=== PATIENT | male | born 1990 | race Caucasian/White ===

== ENCOUNTER 2023-03-17 12:48 | Emergency (ER) | payer SELFPAY | END 2023-03-17 17:24 | disposition home or self-care (01) | LOC: MW.ED 12:48 | DX: S61.212A Laceration without foreign body of right middle finger without damage to nail, initial encounter (principal); S61.210A Laceration without foreign body of right index finger without damage to nail, initial encounter; W23.1XXA Caught, crushed, jammed, or pinched between stationary objects, initial encounter | CPT/HCPCS: 12001; 73140-26-F8; 73140-F8; 99283 ==

== ENCOUNTER 2023-03-27 14:54 | Emergency (ER) | payer SELFPAY | END 2023-03-27 15:48 | disposition left against medical advice (07) | LOC: MW.ED 14:54 | DX: S61.214D Laceration without foreign body of right ring finger without damage to nail, subsequent encounter (principal); Z48.02 Encounter for removal of sutures | CPT/HCPCS: 99281 ==

== ENCOUNTER 2023-05-28 04:07 | Emergency (ER) | payer SELFPAY ==
[2023-05-28] MEDS ORDERED: Sodium Chloride 0.9% 1,000 ML IV ONE (04:58)
[2023-05-28] MEDS ORDERED: Ondansetron 4 MG/2 ML SDV IVPUSH ONE (04:58)
[2023-05-28] MEDS ORDERED: Sodium Chloride 0.9% 10 ML Syringe FLUSH PRN (04:58)
[2023-05-28] MEDS ORDERED: Sodium Chloride 0.9% 2.5 ML Syringe FLUSH PRN (04:58)
[2023-05-28 05:21] LABS: BASOPHILS PERCENT AUTO 0.2 % (0.0-1.5); EOSINOPHILS PERCENT AUTO 0.2 % (0.0-7.0); HEMATOCRIT 44.6 % (38.0-50.0); HEMOGLOBIN 15.2 g/dL (13.0-17.0); LYMPHOCYTES ABSOLUTE AUTO 1.6 K/uL (0.6-2.4); LYMPHOCYTES PERCENT AUTO 11.7 % (16.0-40.0); MEAN CORPUSCULAR HEMOGLOBIN 31.2 pg (27.0-32.0); MEAN CORPUSCULAR HGB CONC 34.1 g/dL (31.0-37.0); MEAN CORPUSCULAR VOLUME 91.6 fL (80.0-98.0); MONOCYTES ABSOLUTE AUTO 0.9 K/uL (0.0-0.8); MONOCYTES PERCENT AUTO 6.5 % (0.0-15.0); NEUTROPHILS PERCENT AUTO 81.4 % (48.0-80.0); NRBC ABSOLUTE 0 K/uL; PLATELET COUNT,PLT 298 K/uL (150-400); RED BLOOD CELL COUNT 4.87 M/uL (4.50-5.90); WHITE BLOOD CELL COUNT,WBC 13.48 K/uL (4.0-11.0)
[2023-05-28 05:57] LABS: A/G RATIO 1.1 (0.9-1.6); ALBUMIN 4.3 g/dL (3.4-5.0); BILIRUBIN TOTAL 0.5 mg/dL (0.2-1.0); CALCIUM 9.3 mg/dL (8.5-10.1); CARBON DIOXIDE,CO2 27.9 mmol/L (21.0-32.0); EST CRCL DRUG DOSING (CG) 94.81 mL/min; MAGNESIUM 1.9 mg/dL (1.8-2.4); POTASSIUM,K 4.5 mmol/L (3.5-5.1); PROTEIN TOTAL,TP 8.1 g/dL (6.4-8.2)
== END 2023-05-28 07:02 | disposition home or self-care (01) ==
LOC: MW.ED 04:07
DX: R11.2 Nausea with vomiting, unspecified (principal); F15.20 Other stimulant dependence, uncomplicated; F10.10 Alcohol abuse, uncomplicated; Z72.0 Tobacco use
CPT/HCPCS: 36415; 80053; 83690; 83735; 84484; 85025; 96361; 96374; 99284; J2405; J7030

== ENCOUNTER 2024-03-17 16:07 | Emergency (ER) | payer MEDICAID ==
[2024-03-17] MEDS ORDERED: Ziprasidone Mesylate 20 MG in Water For Injection, Sterile 1.2 ML IM ONE (16:14)
[2024-03-17] MEDS: Sodium Chloride 0.9% 1,000 ML IV ONE ×3 (16:25→20:38)
[2024-03-17] MEDS: Sodium Chloride 0.9% 2.5 ML Syringe FLUSH PRN (16:25)
[2024-03-17] MEDS: Water For Injection, Sterile 20 ML SDV INJECT ONE (16:25)
[2024-03-17] MEDS: Sodium Chloride 0.9% 10 ML Syringe FLUSH PRN (16:26)
[2024-03-17] MEDS: Ziprasidone Mesylate 20 MG Vial IM ONE (16:32)
[2024-03-17 17:35] LABS: INR 1.2 (0.86-1.11)
[2024-03-17 17:36] LABS: BASOPHILS ABSOLUTE AUTO 0.05 K/uL (0.00-0.20); BASOPHILS PERCENT AUTO 0.5 % (0.0-1.0); EOSINOPHILS ABSOLUTE AUTO 0.04 K/uL (0.00-0.45); EOSINOPHILS PERCENT AUTO 0.4 % (0.0-6.0); HEMATOCRIT 40.6 % (42.0-52.0); HEMOGLOBIN 14.2 g/dL (14.0-18.0); IMMATURE GRAN ABSOLUTE AUTO 0.03 K/uL (0.00-0.05); IMMATURE GRAN PERCENT AUTO 0.3 % (0.0-0.4); LYMPHOCYTES ABSOLUTE AUTO 1.38 K/uL (1.00-4.80); LYMPHOCYTES PERCENT AUTO 13.7 % (24.0-44.0); MEAN CORPUSCULAR HEMOGLOBIN 30.6 pg (28.0-32.0); MEAN CORPUSCULAR VOLUME 87.5 fL (83.0-99.0); MEAN PLATELET VOLUME 9.8 fL (9.4-12.4); MONOCYTES ABSOLUTE AUTO 0.76 K/uL (0.00-0.80); MONOCYTES PERCENT AUTO 7.5 % (0.0-8.0); NEUTROPHILS ABSOLUTE AUTO 7.82 K/uL (1.80-7.70); NEUTROPHILS PERCENT AUTO 77.6 % (41.0-71.0); PLATELET COUNT,PLT 247 K/uL (150-400); RED BLOOD CELL COUNT 4.64 M/uL (4.52-5.90); WHITE BLOOD CELL COUNT,WBC 10.08 K/uL (3.9-11.3)
[2024-03-17 18:14] LABS: A/G RATIO 1.2 (0.9-1.6); ACETAMINOPHEN <2.0 ug/mL; ALANINE AMINOTRANSFERASE,ALT 35 IU/L (14-63); ALBUMIN 3.8 g/dL (3.4-5.0); ALKALINE PHOSPHATASE 50 U/L (46-116); ASPARTATE AMNIOTRANSFERASE,AST 56 IU/L (15-37); BILIRUBIN TOTAL 1.1 mg/dL (0.2-1.0); BLOOD UREA NITROGEN,BUN 29 mg/dL (7.0-18.0); CALCIUM 8.6 mg/dL (8.5-10.1); CARBON DIOXIDE,CO2 25.3 mmol/L (21.0-32.0); CHLORIDE,CL 103 mmol/L (98-107); CREATININE 0.9 mg/dL (0.8-1.3); EST CRCL DRUG DOSING (CG) 108.13 mL/min; ETHANOL BLOOD MEDICAL <3 mg/dL; GLUCOSE RANDOM 101 mg/dL (74-106); LIPASE 55 U/L (16-77); POTASSIUM,K 2.6 mmol/L (3.5-5.1); SALICYLATE 1.6 mg/dL (0.0-20.0); SODIUM,NA 140 mmol/L (136-148); TSH ULTRASENSITIVE 0.69 uIU/mL (0.36-3.74)
[2024-03-17 18:21] LABS: CREATINE KINASE,CK 1491 U/L (26-308); ESTIMATED GFR 115 mL/min (>60)
[2024-03-17 19:08] LABS: LACTIC ACID 1.5 mmol/L (0.4-2.0)
[2024-03-17] MEDS ORDERED: Potassium Chloride 20 MEQ in Premix Bag 1 BAG IV ONE (19:16)
[2024-03-17] MEDS: Magnesium Sulfate/Water 2 GM in Premix Bag 1 BAG IV ONE (20:07)
[2024-03-17] MEDS: Potassium Chloride 20 MEQ in Premix Bag 1 BAG IV SCH (20:37)
[2024-03-17] MEDS: Sodium Chloride 0.9% 250 ML IV SCH (20:39)
[2024-03-17 23:46] LABS: AMPHETAMINES SCREEN, URINE PRESUMPTIVE POSITIVE (CUTOFF=500); BARBITURATE SCREEN,URINE NEGATIVE (CUTOFF=200); BENZODIAZEPINES SCREEN,URINE NEGATIVE (CUTOFF=150); BUPRENORPHINE SCREEN,URINE NEGATIVE (CUTOFF=10); METHADONE SCREEN, URINE NEGATIVE (CUTOFF=200); METHAMPHETAMINES SCREEN, URINE PRESUMPTIVE POSITIVE (CUTOFF=500); OXYCODONE SCREEN,URINE NEGATIVE (CUT0FF=100); PCP SCREEN,URINE NEGATIVE (CUTOFF=25); THC SCREEN,URINE 20 NG/ML NEGATIVE (CUTOFF=50)
[2024-03-18 00:01] LABS: APPEARANCE,URINE CLOUDY; BILIRUBIN,URINE NEGATIVE (NEGATIVE); COLOR,URINE YELLOW; GLUCOSE,URINE NEGATIVE (NEGATIVE); KETONES,URINE TRACE mg/dL (NEGATIVE); LEUKOCYTE ESTERASE,URINE NEGATIVE (NEGATIVE); NITRITE,URINE NEGATIVE (NEGATIVE); OCCULT BLOOD,URINE LARGE (NEGATIVE); PH,URINE 5.5 (5.0-8.0); PROTEIN,URINE 30 mg/dL (NEGATIVE); UROBILINOGEN,URINE 0.2 EU/dL (<2.0)
[2024-03-18 00:19] LABS: AMORPHOUS SEDIMENT,URINE LIGHT (NEGATIVE); BACTERIA,URINE 1+ (NEGATIVE); EPITHELIAL CELLS,URINE FEW (NONE-FEW)
[2024-03-18] MEDS: Potassium Chloride 20 MEQ in Premix Bag 1 BAG IV ONE (00:27)
[2024-03-18] MEDS: Tamsulosin 0.4 MG Cap.ER PO ONE (00:51)
[2024-03-18 01:43] LABS: CALCIUM 7.6 mg/dL (8.5-10.1); CREATININE 0.9 mg/dL (0.8-1.3); EST CRCL DRUG DOSING (CG) 108.13 mL/min; MAGNESIUM 2.3 mg/dL (1.8-2.4); POTASSIUM,K 4.5 mmol/L (3.5-5.1)
== END 2024-03-18 05:37 | disposition home or self-care (01) ==
LOC: MW.ED 16:07
DX: T43.222A Poisoning by selective serotonin reuptake inhibitors, intentional self-harm, initial encounter (principal); F15.10 Other stimulant abuse, uncomplicated; M62.82 Rhabdomyolysis; E86.0 Dehydration
CPT/HCPCS: 36415; 74018; 80048; 80053; 80143; 80179; 80305; 80307; 81001; 82550; 83605; 83690; 83735; 84443; 84484; 85025; 85610; 87635; 93005; 96361; 96365; 96366; 96367; 96372; 99285; A9270; J3475; J3480; J3486; J3490; J7030; J7050; 93010; U0002

== ENCOUNTER 2024-06-04 04:38 | Observation (INO) | payer MEDICAID ==
[2024-06-04] MEDS: Ondansetron 4 MG/2 ML SDV IVPUSH STA (04:58)
[2024-06-04] MEDS: Sodium Chloride 0.9% 1,000 ML IV STA (04:58)
[2024-06-04 05:13] LABS: APPEARANCE,URINE SLT CLOUDY; BILIRUBIN,URINE MODERATE (NEGATIVE); COLOR,URINE DARK YELLOW; GLUCOSE,URINE NEGATIVE (NEGATIVE); KETONES,URINE NEGATIVE (NEGATIVE); LEUKOCYTE ESTERASE,URINE NEGATIVE (NEGATIVE); NITRITE,URINE NEGATIVE (NEGATIVE); OCCULT BLOOD,URINE TRACE-INTACT (NEGATIVE); PH,URINE 5.5 (5.0-8.0); PROTEIN,URINE 100 mg/dL (NEGATIVE); UROBILINOGEN,URINE 0.2 EU/dL (<2.0)
[2024-06-04 05:21] LABS: A/G RATIO 1.1 (0.9-1.6); ALBUMIN 5.7 g/dL (3.4-5.0); BACTERIA,URINE FEW (NEGATIVE); BILIRUBIN TOTAL 1.4 mg/dL (0.2-1.0); CALCIUM 10.3 mg/dL (8.5-10.1); CARBON DIOXIDE,CO2 20.1 mmol/L (21.0-32.0); EPITHELIAL CELLS,URINE NOT SEEN (NONE-FEW); EST CRCL DRUG DOSING (CG) 32.44 mL/min; MUCUS,URINE LIGHT (NONE-MOD); POTASSIUM,K 4.6 mmol/L (3.5-5.1); PROTEIN TOTAL,TP 10.8 g/dL (6.4-8.2); WBC,URINE 0-1 (0-5/HPF)
[2024-06-04 05:22] LABS: AMPHETAMINES SCREEN, URINE PRESUMPTIVE POSITIVE (CUTOFF=500); BARBITURATE SCREEN,URINE NEGATIVE (CUTOFF=200); BENZODIAZEPINES SCREEN,URINE NEGATIVE (CUTOFF=150); BUPRENORPHINE SCREEN,URINE NEGATIVE (CUTOFF=10); METHADONE SCREEN, URINE NEGATIVE (CUTOFF=200); METHAMPHETAMINES SCREEN, URINE PRESUMPTIVE POSITIVE (CUTOFF=500); OXYCODONE SCREEN,URINE NEGATIVE (CUT0FF=100); PCP SCREEN,URINE NEGATIVE (CUTOFF=25); THC SCREEN,URINE 20 NG/ML NEGATIVE (CUTOFF=50)
[2024-06-04 05:26] LABS: HEMATOCRIT 51.3 % (42.0-52.0); HEMOGLOBIN 17.6 g/dL (14.0-18.0); MEAN CORPUSCULAR HEMOGLOBIN 30.6 pg (28.0-32.0); MEAN CORPUSCULAR HGB CONC 34.3 g/dL (32.0-36.0); MEAN CORPUSCULAR VOLUME 89.2 fL (83.0-99.0); MEAN PLATELET VOLUME 9.7 fL (9.4-12.4); PLATELET COUNT,PLT 375 K/uL (150-400); RED BLOOD CELL COUNT 5.75 M/uL (4.52-5.90); WHITE BLOOD CELL COUNT,WBC 16.65 K/uL (3.9-11.3)
[2024-06-04] MEDS ORDERED: Sodium Chloride 0.9% 10 ML Syringe FLUSH PRN (05:27)
[2024-06-04] MEDS ORDERED: Sodium Chloride 0.9% 2.5 ML Syringe FLUSH PRN (05:27)
[2024-06-04 05:43] LABS: LYMPHOCYTES PERCENT MAN 12 % (24-44); MONOCYTES PERCENT MAN 12 % (0-8); SEG NEUTROPHILS ABSOLUTE MAN 12.65 K/uL (1.80-7.70); SEG NEUTROPHILS PERCENT MAN 76 % (41-71)
[2024-06-04 06:15] LABS: INR 1.19 (0.86-1.11)
[2024-06-04 06:31] LABS: CREATINE KINASE,CK 465 U/L (26-308); ETHANOL BLOOD MEDICAL <3 mg/dL; LACTIC ACID 2.4 mmol/L (0.4-2.0)
[2024-06-04] MEDS ORDERED: Sennosides/Docusate Sodium 50-8.6 MG Tab PO PRN (09:38)
[2024-06-04] MEDS ORDERED: Acetaminophen 325 MG Tab PO PRN (09:38)
[2024-06-04] MEDS ORDERED: Ondansetron 4 MG Tab.DIS PO PRN (09:38)
[2024-06-04] MEDS: Sodium Chloride 0.9% 1,000 ML IV ONE (09:52)
[2024-06-04] MEDS: Sodium Chloride 0.9% 1,000 ML IV SCH (11:21)
[2024-06-04 13:13] LABS: BASOPHILS ABSOLUTE AUTO 0.03 K/uL (0.00-0.20); BASOPHILS PERCENT AUTO 0.2 % (0.0-1.0); EOSINOPHILS ABSOLUTE AUTO 0.13 K/uL (0.00-0.45); EOSINOPHILS PERCENT AUTO 0.9 % (0.0-6.0); HEMATOCRIT 45.8 % (42.0-52.0); HEMOGLOBIN 15.5 g/dL (14.0-18.0); IMMATURE GRAN ABSOLUTE AUTO 0.03 K/uL (0.00-0.05); IMMATURE GRAN PERCENT AUTO 0.2 % (0.0-0.4); LYMPHOCYTES ABSOLUTE AUTO 2.39 K/uL (1.00-4.80); LYMPHOCYTES PERCENT AUTO 17.3 % (24.0-44.0); MEAN CORPUSCULAR HEMOGLOBIN 30.2 pg (28.0-32.0); MEAN CORPUSCULAR HGB CONC 33.8 g/dL (32.0-36.0); MEAN CORPUSCULAR VOLUME 89.1 fL (83.0-99.0); MEAN PLATELET VOLUME 9.6 fL (9.4-12.4); MONOCYTES PERCENT AUTO 13.8 % (0.0-8.0); NEUTROPHILS ABSOLUTE AUTO 9.33 K/uL (1.80-7.70); NEUTROPHILS PERCENT AUTO 67.6 % (41.0-71.0); PLATELET COUNT,PLT 306 K/uL (150-400); RED BLOOD CELL COUNT 5.14 M/uL (4.52-5.90); WHITE BLOOD CELL COUNT,WBC 13.81 K/uL (3.9-11.3)
[2024-06-04 13:43] LABS: A/G RATIO 1.1 (0.9-1.6); ALBUMIN 4.1 g/dL (3.4-5.0); BILIRUBIN TOTAL 1.2 mg/dL (0.2-1.0); CALCIUM 8.3 mg/dL (8.5-10.1); CARBON DIOXIDE,CO2 27.4 mmol/L (21.0-32.0); CREATININE 2.2 mg/dL (0.8-1.3); EST CRCL DRUG DOSING (CG) 44.23 mL/min; MAGNESIUM 2.4 mg/dL (1.8-2.4); PHOSPHORUS 4.7 mg/dL (2.6-4.7); POTASSIUM,K 3.3 mmol/L (3.5-5.1)
[2024-06-04] MEDS: Potassium Chloride 20 MEQ Tab.ER PO ONE (17:22)
[2024-06-04] MEDS: Polyethylene Glycol 3350 Powder 17 GM Packet PO PRN (20:33)
[2024-06-05 06:05] LABS: BASOPHILS ABSOLUTE AUTO 0.04 K/uL (0.00-0.20); BASOPHILS PERCENT AUTO 0.6 % (0.0-1.0); EOSINOPHILS PERCENT AUTO 1.4 % (0.0-6.0); HEMATOCRIT 39.4 % (42.0-52.0); HEMOGLOBIN 12.5 g/dL (14.0-18.0); IMMATURE GRAN ABSOLUTE AUTO 0.01 K/uL (0.00-0.05); IMMATURE GRAN PERCENT AUTO 0.1 % (0.0-0.4); LYMPHOCYTES ABSOLUTE AUTO 2.14 K/uL (1.00-4.80); LYMPHOCYTES PERCENT AUTO 29.7 % (24.0-44.0); MEAN CORPUSCULAR HEMOGLOBIN 30.5 pg (28.0-32.0); MEAN CORPUSCULAR HGB CONC 31.7 g/dL (32.0-36.0); MEAN CORPUSCULAR VOLUME 96.1 fL (83.0-99.0); MONOCYTES ABSOLUTE AUTO 0.82 K/uL (0.00-0.80); MONOCYTES PERCENT AUTO 11.4 % (0.0-8.0); NEUTROPHILS ABSOLUTE AUTO 4.09 K/uL (1.80-7.70); NEUTROPHILS PERCENT AUTO 56.8 % (41.0-71.0); PLATELET COUNT,PLT 246 K/uL (150-400)
[2024-06-05 06:31] LABS: A/G RATIO 0.9 (0.9-1.6); BILIRUBIN TOTAL 0.6 mg/dL (0.2-1.0); CALCIUM 7.9 mg/dL (8.5-10.1); CARBON DIOXIDE,CO2 30.5 mmol/L (21.0-32.0); CREATININE 1.3 mg/dL (0.8-1.3); EST CRCL DRUG DOSING (CG) 74.86 mL/min; MAGNESIUM 2.1 mg/dL (1.8-2.4); PHOSPHORUS 1.6 mg/dL (2.6-4.7); POTASSIUM,K 4.5 mmol/L (3.5-5.1); PROTEIN TOTAL,TP 6.2 g/dL (6.4-8.2)
[2024-06-05] MEDS: Phosphorus #1 250 MG Tab PO ONE (09:22)
== END 2024-06-06 09:30 | disposition home or self-care (01) ==
LOC: MW.ED 04:38 → MW.MS 07:39
PROVIDERS: ADMIT Family Medicine; ATTEND Family Medicine
DX: N17.9 Acute kidney failure, unspecified (principal); E86.0 Dehydration; F32.A Depression, unspecified; F41.9 Anxiety disorder, unspecified; Z79.899 Other long term (current) drug therapy
CPT/HCPCS: 36415; 71045; 80053; 80305; 80307; 81001; 82550; 83605; 83735; 84100; 84484; 85025; 85610; 93005; 96361; 96374; 99285; A9270; G0378; J2405; J7030; 93010; 99284

== ENCOUNTER 2024-12-30 00:23 | Emergency (ER) | payer MEDICAID ==
[2024-12-30] MEDS: Acetaminophen 500 MG Tab PO ONE (00:55)
[2024-12-30] MEDS: Dexamethasone 4 MG Tab PO ONE (00:55)
[2024-12-30] MEDS: Lidocaine 4% 1 each Patch TOP ONE (00:56)
[2024-12-30] MEDS: Ketorolac 30 MG/ML SDV IM ONE (00:56)
== END 2024-12-30 02:24 | disposition home or self-care (01) ==
LOC: MW.ED 00:23
DX: S20.211A Contusion of right front wall of thorax, initial encounter (principal); F11.21 Opioid dependence, in remission; Z79.899 Other long term (current) drug therapy; W00.0XXA Fall on same level due to ice and snow, initial encounter
CPT/HCPCS: 71101; 96372; 99283; A9270; J1885; J8540

== ENCOUNTER 2025-05-07 09:30 | Emergency (ER) | payer MEDICAID | END 2025-05-07 09:50 | disposition home or self-care (01) | LOC: MW.ED 09:30 | DX: L03.011 Cellulitis of right finger (principal); Z79.899 Other long term (current) drug therapy | CPT/HCPCS: 99282; 99283 ==

== ENCOUNTER 2025-05-17 02:03 | Emergency (ER) | payer MEDICAID ==
[2025-05-17] MEDS: Azithromycin 250 MG Tab PO ONE (03:01)
[2025-05-17] MEDS: Ibuprofen 800 MG Tab PO ONE (03:01)
== END 2025-05-17 03:15 | disposition home or self-care (01) ==
LOC: MW.ED 02:03
DX: J20.9 Acute bronchitis, unspecified (principal); H65.191 Other acute nonsuppurative otitis media, right ear; H60.501 Unspecified acute noninfective otitis externa, right ear; F17.210 Nicotine dependence, cigarettes, uncomplicated; Z79.899 Other long term (current) drug therapy
CPT/HCPCS: 99283; A9270; 99282

== ENCOUNTER 2025-05-20 02:13 | Emergency (ER) | payer MEDICAID ==
[2025-05-20] MEDS ORDERED: guaiFENesin/Dextromethorphan 100-10 MG/5 ML Soln 10 ML Cup PO STA (02:40)
[2025-05-20] MEDS: guaiFENesin 600 MG Tab.ER PO ONE (02:53)
== END 2025-05-20 03:01 | disposition home or self-care (01) ==
LOC: MW.ED 02:13
DX: R05.9 Cough, unspecified (principal); Z79.899 Other long term (current) drug therapy; Z75.3 Unavailability and inaccessibility of health-care facilities
CPT/HCPCS: 99283; A9270; 99282

== ENCOUNTER 2025-08-07 17:51 | Emergency (ER) | payer SELFPAY | END 2025-08-07 18:45 | disposition home or self-care (01) | LOC: MW.ED 17:51 | DX: L03.012 Cellulitis of left finger (principal); Z79.899 Other long term (current) drug therapy | CPT/HCPCS: 99283 ==

== ENCOUNTER 2025-08-09 09:10 | Emergency (ER) | payer SELFPAY | END 2025-08-09 10:33 | disposition home or self-care (01) | LOC: MW.ED 09:10 | DX: L03.012 Cellulitis of left finger (principal); Z79.899 Other long term (current) drug therapy | CPT/HCPCS: 26010; 99283; A9270; J2003; 10060 ==